=== PATIENT | male | born 1985 | race Two or more races ===

== ENCOUNTER 2021-02-24 13:44 | Emergency (ER) | payer MEDICAID, OTHER ==
[~2021-02-24] VITALS: Ht 175.3 cm; Wt 129.3 kg
[2021-02-24] MEDS ORDERED: HYDROcodone-ACET 5/325MG TAB PO ONE (15:45)
[2021-02-24 20:00] VITALS: BP 101/52
[2021-02-24] MEDS ORDERED: PERCOT PO (20:52)
== END 2021-02-24 21:15 | disposition home or self-care (01) ==
LOC: ER 13:44 → EDBD 13:44 → ER 21:15
DX: S92.312A Displaced fracture of first metatarsal bone, left foot, initial encounter for closed fracture (principal); S92.322A Displaced fracture of second metatarsal bone, left foot, initial encounter for closed fracture; S92.332A Displaced fracture of third metatarsal bone, left foot, initial encounter for closed fracture; S92.342A Displaced fracture of fourth metatarsal bone, left foot, initial encounter for closed fracture; W01.0XXA Fall on same level from slipping, tripping and stumbling without subsequent striking against object, initial encounter; Y93.89 Activity, other specified; Y92.89 Other specified places as the place of occurrence of the external cause; Y99.8 Other external cause status
CPT/HCPCS: 73600; 73620